=== PATIENT | male | born 1980 | race African-American/Black ===

== ENCOUNTER 2017-04-05 11:17 | Emergency (ER) | payer SELFPAY ==
--- NOTE | 2017-04-07 08:16 | Emergency Room Report ---
History of Present Illness General Chief Complaint: To Be Triaged Present Illness HPI Left without being seen Medical Decision Making Diagnostic Impression: Primary Impression: unk ER Course Patient left without being seen at triage. Disposition: LEFT W/OUT BEING SEEN Condition: Unknown Referrals: NOT CHOSEN IPA/,REFERRING (PCP) Omar Ni Apr 07, 2017 08:16
== END 2017-04-05 16:59 | disposition left against medical advice (07) ==
LOC: EMR 12:10
DX: S01.85XA Open bite of other part of head, initial encounter (principal); W54.0XXA Bitten by dog, initial encounter; Z53.21 Procedure and treatment not carried out due to patient leaving prior to being seen by health care provider